=== PATIENT | male | born 1980 | race Caucasian/White ===

== ENCOUNTER → 2023-05-06 | Outpatient (REF) | payer OTHER ==
[2023-05-06 10:15] LABS: APPEARANCE, URINE CLEAR (CLEAR); BACTERIA, URINE AUTO NEGATIVE (NEGATIVE); BILIRUBIN, URINE AUTO NEGATIVE (NEGATIVE); BLOOD, URINE BLOOD NEGATIVE (NEGATIVE); COLOR, URINE YELLOW (YELLOW); GLUCOSE, URINE (UA) AUTO NEGATIVE (NEGATIVE); KETONE, URINE AUTO NEGATIVE (NEGATIVE); LEUKOCYTE ESTERASE, URINE AUTO NEGATIVE (NEGATIVE); NITRITE, URINE AUTO NEGATIVE (NEGATIVE); PROTEIN, URINE AUTO NEGATIVE (NEGATIVE); RBC, URINE AUTO 0 /HPF (0-3); SPECIFIC GRAVITY URINE AUTO 1.027 (1.002-1.035); SQUAMOUS EPITHELIAL CELL UR AU 0 /HPF (0-6); UROBILINOGEN, URINE AUTO 0.2 mg/dL (0.0-2.0); WBC, URINE AUTO 0 /HPF (0-3)
== END ==
LOC: M SMT 09:48
PROVIDERS: ATTEND Nurse Practitioner Family
DX: Z87.438 Personal history of other diseases of male genital organs (principal)
CPT/HCPCS: 51798; 81001; 87086; 87490; 87590; G0463

== ENCOUNTER → 2023-06-02 | Outpatient (CLI) | payer OTHER | LOC: EDUNIT# 05-09 14:30 → M RAD 11:23 | PROVIDERS: ATTEND Nurse Practitioner Family | DX: N50.819 Testicular pain, unspecified (principal); N50.89 Other specified disorders of the male genital organs ==

== ENCOUNTER → 2023-06-03 | Outpatient (CLI) | payer OTHER | LOC: M PLALAB 09:27 | PROVIDERS: ATTEND Nurse Practitioner Family | DX: N50.9 Disorder of male genital organs, unspecified (principal) ==

== ENCOUNTER → 2023-07-17 | Outpatient (CLI) | payer OTHER ==
[~2023-07-17] MED LIST: ISOVUE-370 76% 100ML VIAL As Ordered ONE
== END ==
LOC: M RAD 08:29
PROVIDERS: ATTEND Urology
DX: R39.198 Other difficulties with micturition (principal); K76.89 Other specified diseases of liver; N40.0 Benign prostatic hyperplasia without lower urinary tract symptoms
CPT/HCPCS: 74177; Q9967

== ENCOUNTER → 2023-08-05 | Outpatient (CLI) | payer OTHER | LOC: M RAD 09:52 | PROVIDERS: ATTEND Urology | DX: I86.1 Scrotal varices (principal); N50.89 Other specified disorders of the male genital organs ==

== ENCOUNTER → 2023-08-13 | Outpatient (CLI) | payer OTHER ==
[~2023-08-13] MED LIST changes: +BACTDSTA PO; -ISOVUE-370 76% 100ML VIAL As Ordered ONE
[2023-08-13 17:28] LABS: HEMATOCRIT 46.5 % (42.0-52.0); HEMOGLOBIN 16.2 g/dl (13.5-17.5); MEAN CORPUSCULAR HEMOGLOBIN 31.8 pg (27.0-33.0); MEAN CORPUSCULAR HGB CONC 34.8 g/dl (32.0-36.5); MEAN CORPUSCULAR VOLUME 91.4 fl (80.0-96.0); PLATELET COUNT, AUTOMATED 308 10^3/uL (150-450); RED BLOOD COUNT 5.09 10^6/uL (4.30-6.10); WHITE BLOOD COUNT 7.3 10^3/uL (4.0-10.0)
[2023-08-13 17:49] LABS: APPEARANCE, URINE CLEAR (CLEAR); BACTERIA, URINE AUTO NEGATIVE (NEGATIVE); BILIRUBIN, URINE AUTO NEGATIVE (NEGATIVE); BLOOD, URINE BLOOD NEGATIVE (NEGATIVE); COLOR, URINE YELLOW (YELLOW); GLUCOSE, URINE (UA) AUTO NEGATIVE (NEGATIVE); KETONE, URINE AUTO NEGATIVE (NEGATIVE); LEUKOCYTE ESTERASE, URINE AUTO NEGATIVE (NEGATIVE); MUCUS, URINE SMALL (NEGATIVE); NITRITE, URINE AUTO NEGATIVE (NEGATIVE); PROTEIN, URINE AUTO NEGATIVE (NEGATIVE); RBC, URINE AUTO 0 /HPF (0-3); SPECIFIC GRAVITY URINE AUTO 1.027 (1.002-1.035); SQUAMOUS EPITHELIAL CELL UR AU 0 /HPF (0-6); UROBILINOGEN, URINE AUTO 0.2 mg/dL (0.0-2.0); WBC, URINE AUTO 0 /HPF (0-3)
[2023-08-13 17:56] LABS: BLOOD UREA NITROGEN 24 MG/DL (9-23); CALCIUM LEVEL 9.5 MG/DL (8.5-10.1); CARBON DIOXIDE LEVEL 30 MMOL/L (20-31); CHLORIDE LEVEL 103 MMOL/L (98-107); CREATININE FOR GFR 1.36 MG/DL (0.70-1.30); GLOMERULAR FILTRATION RATE > 60.0 (>60); GLUCOSE, FASTING 80 MG/DL (60-100); POTASSIUM SERUM 4.5 MMOL/L (3.5-5.1); SODIUM LEVEL 140 MMOL/L (136-145)
== END ==
LOC: M PLALAB 15:26
PROVIDERS: ATTEND Nurse Practitioner Family
DX: Z01.818 Encounter for other preprocedural examination (principal)

== ENCOUNTER 2023-08-18 10:31 | Day surgery (SDC) | payer OTHER ==
[~2023-08-18] VITALS: Ht 180.3 cm; Wt 97.1 kg
[~2023-08-18 10:31] MED LIST changes: +LIDOCAINE 2% 100MG/5ML SDV (FOR ANES.) As Ordered ONE; +MIDAZOLAM INJ 2MG/2ML VIAL As Ordered ONE; +ONDANSETRON 4MG 2ML VIAL As Ordered ONE; +fentaNYL 100 MCG/2 ML INJECTION As Ordered ONE; +propofoL 200 MG/20 ML VIAL As Ordered ONE
[2023-08-18] MEDS ORDERED: LR 1,000 ML IV SCH ×2 (11:05→13:30)
[2023-08-18] MEDS: ceFAZolin SOD 2 GM in IV 1 EA IV ONE (12:45)
[2023-08-18] MEDS ORDERED: ACETAMINOPHEN 1000MG 100ML IV BAG As Ordered ONE (12:48)
[2023-08-18] MEDS: LIDOCAINE 2% MDV 20ML VIAL As Ordered ONE (13:22)
[2023-08-18] MEDS ORDERED: METOCLOPRAMIDE INJ 10MG/2ML VIAL IV PRN (13:30)
[2023-08-18] MEDS ORDERED: MEPERIDINE 25 MG/ML 1ML VIAL IV PRN (13:30)
[2023-08-18] MEDS ORDERED: ONDANSETRON 4MG 2ML VIAL IV PRN (13:30)
[2023-08-18] MEDS ORDERED: HYDROMORPHONE HCL 0.5 MG/ 0.5 ML SYRINGE IV PRN (13:30)
[2023-08-18] MEDS ORDERED: diphenhydrAMINE 50MG/ML VIAL IV PRN (13:30)
[2023-08-18] MEDS ORDERED: CEPH500C PO (13:42)
[2023-08-18] MEDS ORDERED: HYDR-3713 PO (13:42)
[2023-08-18] MEDS: fentaNYL 100 MCG/2 ML INJECTION IV PRN (13:59)
[2023-08-18] MEDS: oxyCODONE 5MG TAB PO PRN (14:01)
[2023-08-18 14:20] VITALS: BP 130/78; TEMP 97.3; O2SAT 99
== END 2023-08-18 14:45 | disposition home or self-care (01) ==
LOC: M SDC 10:31
PROVIDERS: ATTEND Urology
DX: C62.12 Malignant neoplasm of descended left testis (principal); R35.0 Frequency of micturition; R39.15 Urgency of urination; Z87.438 Personal history of other diseases of male genital organs
CPT/HCPCS: 54530; 88309; J0131; J0665; J0690; J1100; J2250; J2405; J3010

== ENCOUNTER → 2023-09-02 | Outpatient (REF) | payer OTHER ==
[~2023-09-02] MED LIST changes: +CEPH500C PO; +HYDR-3713 PO; -LIDOCAINE 2% 100MG/5ML SDV (FOR ANES.) As Ordered ONE; -MIDAZOLAM INJ 2MG/2ML VIAL As Ordered ONE; -ONDANSETRON 4MG 2ML VIAL As Ordered ONE; -fentaNYL 100 MCG/2 ML INJECTION As Ordered ONE; -propofoL 200 MG/20 ML VIAL As Ordered ONE
== END ==
LOC: M LABSMT 15:25
PROVIDERS: ATTEND Urology
DX: C62.12 Malignant neoplasm of descended left testis (principal)

== ENCOUNTER → 2023-09-04 | Outpatient (CLI) | payer OTHER ==
[~2023-09-04] MED LIST changes: +ISOVUE-370 76% 100ML VIAL ONE
[2023-09-05 09:11] LABS: TESTOSTERONE FREE (DIRECT) 10.3 pg/mL (6.8-21.5)
== END ==
LOC: M PLAIMG 10:08
PROVIDERS: ATTEND Urology
DX: C62.12 Malignant neoplasm of descended left testis (principal)
CPT/HCPCS: 36415; 71260; 84402; 84403; Q9967